=== PATIENT | male | born 1990 | race African-American/Black ===

== ENCOUNTER 2016-08-14 00:01 | Emergency (ER) | payer OTHER ==
[~2016-08-14] VITALS: Ht 190.5 cm; Wt 106.1 kg
[2016-08-14 00:06] VITALS: BP 140/83
== END 2016-08-14 01:02 | disposition left against medical advice (07) ==
LOC: M ED 01:00
DX: R68.84 Jaw pain (principal); Z53.21 Procedure and treatment not carried out due to patient leaving prior to being seen by health care provider

== ENCOUNTER 2016-10-10 14:31 | Emergency (ER) | payer OTHER ==
[~2016-10-10] VITALS: Ht 190.5 cm; Wt 95.3 kg
[2016-10-10] MEDS ORDERED: OXYC1TAB23 PO (14:41)
[2016-10-10] MEDS ORDERED: diphenhydrAMINE INJ 50MG/ML VIAL (J1200) IV ONE (15:00)
[2016-10-10] MEDS ORDERED: FAMOTIDINE INJ 20MG/2ML VIAL (S0028) IVP ONE (15:00)
[2016-10-10] MEDS ORDERED: methylPREDNISolone INJ 125 MG/2 ML VIAL (J2930) IV ONE (15:00)
--- NOTE | 2016-10-10 15:43 | ED PDOC ---
Post-Departure Follow-Up AT THIS TIME, CHECKED ON PT. PT SLEEPING ON EXAM BED, IN NAD, WAKES EASILY TO SPOKEN VOICE. STATED HE FELT THAT HE COULD BREATHE/SWALLOW A LITTLE EASIER THAN WHEN HE ARRIVED. WILL RECHECK PT AGAIN SHORTLY. SPOKE WITH PT AGAIN AT THIS TIME. ADVISED HIS SYMPTOMS APPEAR TO BE IMPROVING WITH THE MEDICATIONS, LOWER LIP SWELLING HAS IMPROVED. PT STILL SLEEPY AND ADVISED AT THE TIME HE WAS SEEN THAT HE WOULD NEED A RIDE HOME. PT ASKING AT THIS TIME TO DRIVE HOME AND ADVISED THIS IS NOT SAFE, GIVEN THAT HE HAS HAS 50MG BENADRYL IV. ADVISED HE CAN STAY LONG NEEDED BUT THAT HE NEEDS TO HAVE A RIDE HOME. PT VOICED UNDERSTANDING. EDELMIRA ESCOBAR PA-C October 10, 2016 15:43
[2016-10-10] MEDS ORDERED: PRED50TA PO (16:14)
[2016-10-10] MEDS ORDERED: FAMO20TA PO (16:14)
[2016-10-10 16:25] VITALS: BP 120/68
== END 2016-10-10 16:30 | disposition home or self-care (01) ==
LOC: M ED 14:59
DX: T50.905A Adverse effect of unspecified drugs, medicaments and biological substances, initial encounter (principal); R22.0 Localized swelling, mass and lump, head; K08.409 Partial loss of teeth, unspecified cause, unspecified class; Z98.818 Other dental procedure status; X58.XXXA Exposure to other specified factors, initial encounter; Y92.89 Other specified places as the place of occurrence of the external cause; Z91.013 Allergy to seafood
CPT/HCPCS: 96374; 96375; 99283; J1200; J2930

== ENCOUNTER 2016-10-12 00:37 | Emergency (ER) | payer OTHER ==
[~2016-10-12] VITALS: Ht 190.5 cm; Wt 98.0 kg
[~2016-10-12 00:37] MED LIST: FAMO20TA PO; OXYC1TAB23 PO; PRED50TA PO
[2016-10-12] MEDS ORDERED: NS 1,000 ML IV ONE (02:00)
[2016-10-12] MEDS ORDERED: diphenhydrAMINE INJ 50MG/ML VIAL (J1200) IV ONE (02:00)
[2016-10-12] MEDS ORDERED: KETOROLAC 30 MG/ML VIAL (J1885) IV ONE (02:00)
[2016-10-12] MEDS ORDERED: METOCLOPRAMIDE INJ 10MG/2ML VIAL (J2765) IV ONE (02:00)
[2016-10-12 05:07] VITALS: BP 101/56
== END 2016-10-12 05:09 | disposition home or self-care (01) ==
LOC: M ED 01:38
DX: R51 Headache (principal); R11.2 Nausea with vomiting, unspecified; Z91.013 Allergy to seafood
CPT/HCPCS: 96361; 96374; 96375; 99283; J1200; J1885; J2765

== ENCOUNTER 2017-01-21 09:28 | Emergency (ER) | payer OTHER ==
[~2017-01-21] VITALS: Ht 193 cm; Wt 102.3 kg
[~2017-01-21 09:28] MED LIST changes: +LIDOCAINE 1% MDV 20ML VIAL As Ordered ONE
[2017-01-21] MEDS ORDERED: cefTRIAXone SOD 1 GM VIAL (J0696) IM ONE (10:15)
[2017-01-21] MEDS ORDERED: LIDOCAINE 1% MDV 20ML VIAL IM ONE (10:15)
[2017-01-21] MEDS ORDERED: AZITHROMYCIN 250 MG TAB PO ONE (10:15)
[2017-01-21 11:12] VITALS: BP 121/70
== END 2017-01-21 11:14 | disposition home or self-care (01) ==
LOC: M ED 09:28
DX: N34.1 Nonspecific urethritis (principal); Z20.2 Contact with and (suspected) exposure to infections with a predominantly sexual mode of transmission; Z91.013 Allergy to seafood
CPT/HCPCS: 81001; 87086; 87491; 87591; 99283; J0696